=== PATIENT | male | born 1975 | race Caucasian/White ===

== ENCOUNTER 2020-02-02 10:33 | Emergency (ER) | payer OTHER ==
[2020-02-02] MEDS ORDERED: Ketorolac 60 MG/2 ML SDV IM ONE (11:17)
[2020-02-02] MEDS ORDERED: HYDROmorphone 1 MG/ML Syringe IM ONE (11:17)
[2020-02-02] MEDS ORDERED: Cyclobenzaprine 10 MG Tab PO ONE (11:17)
--- NOTE | 2020-02-02 11:37 | EDM.PDOC ---
ED HPI GENERAL MEDICAL PROBLEM - General Chief Complaint: Back Pain or Injury Stated Complaint: BACK PAIN Time Seen by Provider: 02/02/20 10:49 Source of Information: Reports: Patient, Family History Limitations: Reports: No Limitations - History of Present Illness INITIAL COMMENTS - FREE TEXT/NARRATIVE: The patient presents with low back pain. He says about 6 months ago he fell and hurt his back. Since then he has been having increasing low back pain on both sides that radiates down both legs at times. He will have some numbness in his thighs at times. He has no trouble urinating or having bowel movements. He has no fever, chills, cough, chest pain, shortness of breath, abdominal pain, nausea or vomiting. Onset: Gradual Duration: Week(s): Location: Reports: Back Quality: Reports: Sharp Severity: Moderate Improves with: Reports: Immobilization Worsens with: Reports: Movement Context: Reports: Trauma (Fell about 6 months ago) Associated Symptoms: Reports: No Other Symptoms Lower Back Pain Score (Numeric/FACES): 8 - Related Data Allergies Allergy/AdvReac Type Severity Reaction Status Date / Time simvastatin Allergy Body Aches Verified 02/02/20 11:00 Home Meds: Home Meds Ascorbic Acid [Vitamin C] 500 mg PO DAILY 02/02/20 [History] Cholecalciferol (Vitamin D3) [Vitamin D3] 2,000 unit PO DAILY 02/02/20 [History] Cyclobenzaprine [Flexeril] 10 mg PO TID PRN #20 tab 02/02/20 [Rx] Hydrocodone/Acetaminophen [Hydrocodon-Acetaminophen 5-325] 1 - 2 each PO Q6HR PRN #20 tablet 02/02/20 [Rx] Lisinopril/Hydrochlorothiazide [Lisinopril-Hctz 20-25 mg Tab] 1 tab PO DAILY 03/20 [History] Past Medical History Cardiovascular History: Reports: High Cholesterol, Hypertension Musculoskeletal History: Reports: Back Pain, Chronic Social & Family History - Tobacco Use Smoking Status *Q: Never Smoker - Caffeine Use Caffeine Use: Reports: None - Recreational Drug Use Recreational Drug Use: No ED ROS GENERAL - Review of Systems Review Of Systems: See Below Constitutional: Reports: No Symptoms HEENT: Reports: No Symptoms Respiratory: Reports: No Symptoms Cardiovascular: Reports: No Symptoms Endocrine: Reports: No Symptoms GI/Abdominal: Reports: No Symptoms : Reports: No Symptoms Musculoskeletal: Reports: Back Pain ED EXAM,LOWER BACK PAIN/INJURY - Physical Exam Exam: See Below Exam Limited By: No Limitations General Appearance: Alert, No Apparent Distress Ears: Normal External Exam Nose: Normal Inspection Head: Atraumatic, Normocephalic Neck: Normal Inspection Respiratory/Chest: No Respiratory Distress, Lungs Clear, Normal Breath Sounds Cardiovascular: Regular Rate, Rhythm, No Edema, No Murmur GI/Abdominal: Soft, Non-Tender, No Organomegaly, No Mass Back Exam: Other (Pain upon palpation to the lumbar spine) Course - Vital Signs Last Recorded V/S: Last Vital Signs Temp 98.3 F 02/02/20 12:01 Pulse 92 02/02/20 12:01 Resp 16 02/02/20 12:01 BP 127/84 02/02/20 12:01 Pulse Ox 96 02/02/20 12:01 - Orders/Labs/Meds Orders: Active Orders 24 hr Category Date Time Status Lumbar Spine 2 or 3V [CR] Stat Exams 02/02/20 11:16 Taken Meds: Medications Discontinued Medications Generic Name Dose Route Start Last Admin Trade Name Freq PRN Reason Stop Dose Admin Cyclobenzaprine HCl 10 mg 02/02/20 11:17 02/02/20 11:58 Flexeril PO 02/02/20 11:18 10 mg ONETIME ONE Administration Hydromorphone HCl 1 mg 02/02/20 11:17 02/02/20 11:53 Dilaudid IM 02/02/20 11:18 1 mg ONETIME ONE Administration Ketorolac Tromethamine 60 mg 02/02/20 11:17 02/02/20 11:56 Toradol IM 02/02/20 11:18 60 mg ONETIME ONE Administration - Re-Assessments/Exams Free Text/Narrative Re-Assessment/Exam: 02/02/20 11:40 I ordered an x-ray of his back, dilaudid 1mg IM, toradol 60mg IM and flexeril 10mg by mouth. Departure - Departure Time of Disposition: 12:15 Disposition: Home, Self-Care 01 Condition: Good Clinical Impression: Low back pain Qualifiers: Chronicity: chronic Back pain laterality: bilateral Sciatica presence: with sciatica Sciatica laterality: bilateral sciatica Qualified Code(s): M54.42 - Lumbago with sciatica, left side; M54.41 - Lumbago with sciatica, right side; G89.29 - Other chronic pain - Discharge Information *PRESCRIPTION DRUG MONITORING PROGRAM REVIEWED*: No *COPY OF PRESCRIPTION DRUG MONITORING REPORT IN PATIENT ALAN: No Prescriptions: Hydrocodone/Acetaminophen [Hydrocodon-Acetaminophen 5-325] 1 - 2 each PO Q6HR PRN #20 tablet PRN Reason: Pain Cyclobenzaprine [Flexeril] 10 mg PO TID PRN #20 tab PRN Reason: Pain Referrals: Delfina Dunn MD [Primary Care Provider] - Forms: ED Department Discharge Additional Instructions: Take motrin or aleve for pain. If that does not help, try the flexeril and hydrocodone. I have an MRI scheduled for you on Friday at 12:30. Please come early to register. Please return if you are worse. Sepsis Event Note - Evaluation Sepsis Screening Result: No Definite Risk - Focused Exam Vital Signs: Vital Signs Temp Pulse Resp BP Pulse Ox 02/02/20 12:01 98.3 F 92 16 127/84 96 02/02/20 10:56 98.3 F 93 16 137/90 96 Date Exam was Performed: 02/02/20 Time Exam was Performed: 12:04 - My Orders Last 24 Hours: My Active Orders 02/02/20 11:16 Lumbar Spine 2 or 3V [CR] Stat - Assessment/Plan Last 24 Hours: My Active Orders 02/02/20 11:16 Lumbar Spine 2 or 3V [CR] Stat
[2020-02-02 12:02] VITALS: BP 127/84; PULSE 92
--- NOTE | 2020-02-03 07:46 | CR ---
Lumbar spine: AP and lateral views of the lumbar spine were obtained. Comparison: No previous lumbar spine imaging. Moderate disc space narrowing at L5-S1 with anterior endplate osteophytes. Other disc spaces are maintained. Vertebral body heights are maintained. Minimal scoliosis is noted. Pedicles are intact. Visualized transverse and spinous processes are intact. Sacroiliac joints appear within normal limits. Impression: 1. Disc space narrowing and anterior osteophytes at L5-S1. 2. Mild scoliosis. 3. Nothing acute is appreciated on two-view lumbar spine study. Diagnostic code #2 This report was dictated in [place] Standard Time
== END 2020-02-02 12:20 | disposition home or self-care (01) ==
LOC: JD.ED 10:33
DX: M54.42 Lumbago with sciatica, left side (principal); M54.41 Lumbago with sciatica, right side; G89.29 Other chronic pain; I10 Essential (primary) hypertension; Z88.8 Allergy status to other drugs, medicaments and biological substances; Z79.899 Other long term (current) drug therapy
CPT/HCPCS: 72100; 96372; 99284; A9270; J1170; J1885; 99283

== ENCOUNTER 2022-07-18 11:58 | Emergency (ER) | payer OTHER ==
[2022-07-18 13:57] VITALS: BP 150/70; PULSE 81
[2022-07-18] MEDS ORDERED: Sodium Chloride 0.9% 10 ML Syringe FLUSH PRN (14:13)
[2022-07-18] MEDS ORDERED: Aspirin 81 MG Tab.Chew PO ONE (14:13)
== END 2022-07-18 16:45 | disposition home or self-care (01) ==
LOC: JD.ED 11:58
DX: R07.89 Other chest pain (principal); E78.00 Pure hypercholesterolemia, unspecified; I10 Essential (primary) hypertension; Z88.8 Allergy status to other drugs, medicaments and biological substances; Z79.899 Other long term (current) drug therapy
CPT/HCPCS: 36415; 71045; 80053; 84484; 85025; 93005; 99285; A9270; J3490

== ENCOUNTER 2023-04-03 07:41 | Day surgery (SDC) | payer OTHER ==
[~2023-04-03 07:41] MED LIST: Bupivacaine 0.25% 10 ML SDV ONE; Lactated Ringers 1,000 ML IV SCH; Lidocaine 1% 10 ML MDV ONE; Lidocaine 1% 4 ML ONE; Lidocaine 1%/Sod Bicarbonate in NS 8.4% 1 ML Syringe IDERM PRN; Propofol 200 MG/20 ML SDV ONE; Sodium Chloride 0.9% 10 ML Syringe FLUSH PRN; Sodium Chloride 0.9% 10 ML Syringe FLUSH SCH; fentaNYL 100 MCG/2 ML SDV ONE
[2023-04-03] MEDS ORDERED: Ketamine 500 mg/10 ML MDV ONE (08:29)
[2023-04-03 08:57] VITALS: BP 124/88; PULSE 93
== END 2023-04-03 09:05 | disposition home or self-care (01) ==
LOC: JD.SDS 07:41
PROVIDERS: ATTEND Orthopaedic Surgery
DX: M65.841 Other synovitis and tenosynovitis, right hand (principal); I10 Essential (primary) hypertension; E78.5 Hyperlipidemia, unspecified; F17.210 Nicotine dependence, cigarettes, uncomplicated; K76.0 Fatty (change of) liver, not elsewhere classified; K21.9 Gastro-esophageal reflux disease without esophagitis; E03.9 Hypothyroidism, unspecified; M54.9 Dorsalgia, unspecified; G89.29 Other chronic pain; E66.9 Obesity, unspecified; Z68.30 Body mass index [BMI] 30.0-30.9, adult; Z79.899 Other long term (current) drug therapy
CPT/HCPCS: 26055; J2704; J3010; J3490; J7120; 01810

== ENCOUNTER 2023-10-14 09:11 | Day surgery (SDC) | payer OTHER ==
[~2023-10-14 09:11] MED LIST changes: -Bupivacaine 0.25% 10 ML SDV ONE; -Lidocaine 1% 10 ML MDV ONE; -Lidocaine 1% 4 ML ONE; -Lidocaine 1%/Sod Bicarbonate in NS 8.4% 1 ML Syringe IDERM PRN; -Propofol 200 MG/20 ML SDV ONE; -fentaNYL 100 MCG/2 ML SDV ONE
[2023-10-14] MEDS ORDERED: Propofol 200 MG/20 ML SDV ONE ×3 (09:14→09:54)
[2023-10-14] MEDS ORDERED: Ondansetron 4 MG/2 ML SDV ONE (09:15)
[2023-10-14 10:52] VITALS: BP 135/87; PULSE 77
== END 2023-10-14 10:59 | disposition home or self-care (01) ==
LOC: JD.SDS 09:11
PROVIDERS: ATTEND Surgery
DX: Z12.11 Encounter for screening for malignant neoplasm of colon (principal); D12.3 Benign neoplasm of transverse colon; D12.2 Benign neoplasm of ascending colon; K62.1 Rectal polyp; I10 Essential (primary) hypertension; E78.00 Pure hypercholesterolemia, unspecified; Z88.8 Allergy status to other drugs, medicaments and biological substances; Z79.890 Hormone replacement therapy; Z79.899 Other long term (current) drug therapy; Z80.0 Family history of malignant neoplasm of digestive organs; Z87.891 Personal history of nicotine dependence
CPT/HCPCS: 45380; 45385; J2405; J2704; J7120; 88305